=== PATIENT | female | born 1955 | race Caucasian/White ===

== ENCOUNTER 2024-11-05 20:14 | Inpatient (IN) | payer MEDICARE, OTHER, SELFPAY ==
[2024-11-05 14:36] VITALS: BP 149/81
[2024-11-05 15:00] LABS: % Basophils 0.4 % (0-2); % Eosinophils 2.2 % (0-6); % Immature Granulocytes 0.4 % (0-0.5); % Lymphocytes 14.9 % (20.5-51.1); % Monocytes 10.2 % (1.7-9.3); % Neutrophils 71.9 % (42.2-75.2); Absolute Eosinophils 0.2 10^3/uL (0-0.7); Absolute Lymphocytes 1.3 10^3/uL (1.2-3.4); Absolute Monocytes 0.9 10^3/uL (0.1-0.6); Hemoglobin 13.2 g/dL (12.0-16.0); Mean Corp Hgb Conc. 33.8 g/dL (33.0-37.0); Mean Corpuscular Hgb 30.4 pg (27.0-31.0); Mean Corpuscular Volume 89.9 fL (81.0-99.0); Mean Platelet Volume 10.3 fL (7.4-10.4); Nucleated Red Blood Cells % 0 %; Platelet Count 217 10^3/uL (130-400); Red Blood Cell Count 4.34 10^6/uL (4.20-5.40); Red Cell Dist. Width 11.9 % (11.5-14.5); White Blood Cell Count 8.4 10^3/uL (4.8-10.8)
[2024-11-05 15:05] LABS: Urine Albumin Negative (Neg - Trace); Urine Bilirubin Negative (Negative); Urine Character Clear (Clear); Urine Color Yellow; Urine Glucose Negative (Negative); Urine Ketone Negative (Negative); Urine Leukocyte Negative (Negative); Urine Nitrite Negative (Negative); Urine Occult Blood Negative (Negative); Urine Urobilinogen Negative (Neg - 1+)
[2024-11-05 15:22] LABS: ALT (SGPT) 15 U/L (0-35); AST (SGOT) 18 U/L (14-36); Albumin 4.3 g/dl (3.5-5.0); Alkaline Phosphatase 85 U/L (38-126); Blood Urea Nitrogen 13 mg/dl (7-17); Calcium 9.2 mg/dl (8.4-10.2); Carbon Dioxide 26 mmol/L (22-30); Chloride 101 mmol/L (98-107); Glucose 94 mg/dl (70-99); Potassium 4.3 mmol/L (3.5-5.1); Sodium 136 mmol/L (135-145); Total Protein 6.7 g/dl (6.3-8.2); eGFR > 60.00
[2024-11-05 17:43] VITALS: BP 135/95
--- NOTE | 2024-11-05 18:29 | ED.GENMED ---
History of Present Illness
General
Chief Complaint: Flank Pain
Source: patient
Exam Limitations: none
Time Seen by Provider: 11/05/24 16:19
Nursing documentation reviewed up to this point in time: agreed with
History of Present Illness
History of Present Illness:
69-year-old female with past medical history as documented presents to the emergency room for evaluation of abdominal pain. Patient reports symptoms started about a week ago and have been constant although intermittently more intense since then.
She reports she has had 3 episodes since onset of pain where she is 'doubled over' due to severe symptoms. She says initially she thought it was a kidney stone so she has been drinking plenty of fluids but symptoms do not seem to be getting any
better and today had another very intense episode of pain which prompted her to finally come for assessment. She has had some chills, nausea during these bouts of intense pain. Last night she says that she had a low-grade fever with a temp of 100
�F. She denies any dysuria, hematuria. She denies any diarrhea. Denies any vomiting. Denies other complaints.
Review of Systems
Review of Systems
All Other Systems: ROS reviewed and negative except as documented in HPI and ROS
Constitutional: Denies fever or chills
Respiratory: Denies trouble breathing
Cardiac: Denies chest pain
ABD/GI: Reports abdominal pain; Denies nausea, vomiting or diarrhea
: Reports flank pain; Denies dysuria or frequency
Musculoskeletal: Denies neck pain or back pain
Neurological: Denies dizzy or headache
Phy Exam
Physical Exam
Physical Exam:
General: Awake, alert, oriented x3; no acute distress
Head: Normocephalic, atraumatic
Eyes: Conjunctiva normal, sclera anicteric
Throat: Airway intact, handling secretions
Neck: Trachea midline, supple without meningismus
Lungs: Clear to auscultation bilaterally, no wheezing, rales, rhonchi
Heart: Regular rate and rhythm, no murmurs, gallops, or rubs
Abd: Soft, non distended, tender to palpation left lower quadrant with no peritoneal signs or masses appreciated
Back: No CVA tenderness
Neuro: No gross deficit
Extremities: No edema in extremities, warm and well-perfused
Scores
Heart Failure Risk
Heart Failure Risk Score: Not Applicable
Heart Score for Chest Pain Patients
STEMI patient?: Not applicable
Withdrawal Assessment of Alcohol
Withdrawal Assessment Completed?: Not applicable
Course
Orders/Labs/Results
Orders:
Orders
11/05/24 14:49
Complete Blood Count/With Diff Urgent
Comprehensive Metabolic Panel Urgent
Urinalysis Reflex To Culture Urgent
Date Specimen was Collected: 11/05/24
Time Specimen was Collected: 14:41
11/05/24 17:17
CT Abd/pelvis W Iv Cont Urgent
Comment:
Reason For Exam: left flank/abd pain
11/05/24 19:08
CefTRIAXone [Rocephin] 1,000 mg IV NOW STA
MetroNIDAZOLE 500 MG/100 ML [Flagyl 500 mg] 100 ml IV NOW
11/05/24 19:15
0.9% Sodium Chloride 1000 ml [Nss] 1,000 ml IV 125 mls/hr
Abnormal Lab Results
11/05/24
14:49
Absolute Monos (auto) 0.9 H 10^3/uL
(0.1-0.6)
Lymphocytes % 14.9 L %
(20.5-51.1)
Monocytes % 10.2 H %
(1.7-9.3)
11/05/24 14:49
11/05/24 14:49
Vital Signs
Initial and Last Documented VS:
Initial Vital Signs
Temp Pulse Resp BP Pulse Ox
36.9 C 96 16 149/81 99
11/05/24 14:36 11/05/24 14:36 11/05/24 14:36 11/05/24 14:36 11/05/24 14:36
Last Documented Vital Signs
Temp Pulse Resp BP Pulse Ox
36.9 C 96 16 135/95 99
11/05/24 14:36 11/05/24 14:36 11/05/24 14:36 11/05/24 17:43 11/05/24 17:45
MDM/Problems Addressed
Differential Diagnosis Includes:
Diverticulitis, nephrolithiasis, UTI/pyelonephritis, colitis
MDM/Problems Addressed:
69-year-old female presents to the emergency room for evaluation of abdominal pain x 1 week left lower quadrant/flank. Occasional bouts of more intense pain. Low-grade fever last night. Vitals and exam as above. Place an IV check labs including
a CBC and a CMP, check urinalysis. Check CT abdomen pelvis. Treat pain and provide fluids. Reassess after the above.
Labs reviewed: CBC unremarkable, CMP no clinically significant abnormalities. Urinalysis negative for infection, no blood. CT abdomen pelvis is pending.
CT abdomen pelvis shows acute diverticulitis. Also shows small amount of intraluminal or extraluminal air along the lateral wall of the sigmoid colon distal to the inflamed diverticulum. Clinical suspicion is low for microperforation but given
this finding will admit for serial exams, trending of labs and inpatient treatment. Case discussed with hospitalist.
*Radiology
Radiology exam reviewed: radiology read reviewed
*Pulse Oximetry
Patient hypoxic: no
*Critical Care Note
Total Time (30-74mins, 75-104mins- exclusive of procedures): Not Applicable
Data Reviewed
Source: patient, records and spouse
Patient Management
Discussion with other providers: Hospitalist (Discussed with hospitalist)
Escalation/DeEscalation of care consider admission/obs:
Admission indicated
ED Attending Note
-
Portions of this chart may have been created with voice recognition software.� Occasional wrong word or��sound alike� substitutions may have occurred due to the inherent limitations of voice recognition software.
Discharge Plan
Departure
Patient Disposition: Admit
Date of Disposition: 11/05/24
Time of Disposition: 19:10
Admit to doctor: Spencer
Presentation/result/management discussed w/ accepting MD/DO: Hospitalist
Discharge Problem:
Acute diverticulitis
Referrals:
Yael Shaw DO [Family Provider] -
Interventions
Interventions:
*Risk Screen - Suicide Last Done: 11/05/24 14:43
*General Assessment Last Done: 11/05/24 17:00
*Neglect/Abuse Screening Last Done: 11/05/24 14:43
*ED COVID-19 Vaccine History Last Done: 11/05/24 17:00
CW-Afxmhg-Bvasmuraks Assessment Last Done: 11/05/24 17:00
ED-Female Genitourinary Assessment Last Done: 11/05/24 17:00
Discharge Date and Time
Print Language: KINYARWANDA
--- NOTE | 2024-11-05 19:15 | HPS.HSE ---
Family Physician
-
Family Physician: Yael Shaw
Chief Complaint
-
left flank and lower abdominal pain
History of Present Illness
Patient is a 69-year-old female with past medical history significant for hypothyroidism, hypertension and prediabetes who presented to [facility] ED for evaluation of left lower abdominal and left flank pain. Patient reports left flank and left
lower quadrant discomfort intermittently over past week gradually getting more intense. Last evening she reports that she had increased discomfort and noticed a low grade temp of 100F with associated nausea. Patient denies any chill, vomiting,
constipation or diarrhea.
Medical History
Past Medical History
Past Medical History: Reports Other
Additional Past Medical History:
hypothyroidism
benign hypertension
prediabetes
Past Surgical History: Reports Other
Additional Past Surgical History:
appendectomy
cholecystectomy
bilateral shoulder repair
left total knee
Social History
Tobacco: Non-smoker
Alcohol: Occasional
Drug: None
Personal:
Living: With Family
Employment: Retired
Family History
Family History: Not pertinent
Allergies / Home Medications
Allergies reflects when Allergies were last updated in [facility].
Home Medications with original date entered in [facility]
Allergy/Medication List:
Allergies
Allergy/AdvReac Type Severity Reaction Status Date / Time
acetaminophen Allergy Unverified 02/08/08 19:17
cefuroxime Allergy Unverified 02/08/08 19:17
Cephalosporins Allergy Unverified 02/08/08 19:17
ciprofloxacin Allergy Unverified 02/08/08 19:17
morphine Allergy Unverified 02/08/08 19:17
oxycodone Allergy Unverified 02/08/08 19:17
penicillin G Allergy Unverified 02/08/08 19:17
Penicillins Allergy Unverified 04/24/08 19:17
Quinolones Allergy Unverified 02/08/08 19:17
Sulfa (Sulfonamide Allergy Unverified 02/08/08 19:17
Antibiotics)
NOT.VZYNDPSSX26 - Not Allergy Uncoded 02/08/08 19:17
Converted 7. See Text.
NOT.GBVLLPDHG15 - Not Allergy Uncoded 02/08/08 19:17
Converted 38. See Text.
Home Medications
fluticasone propionate 50 mcg/actuation nasal spray,suspension 1 spray intranasal DAILYPRN PRN allergies 11/05/24
levothyroxine 100 mcg capsule (Tirosint) 100 mcg PO Q48H 11/05/24
levothyroxine 88 mcg capsule (Tirosint) 88 mcg PO Q48H 11/05/24
losartan 25 mg tablet (Cozaar) 25 mg PO DAILY 11/05/24
metformin 500 mg tablet 500 mg PO BID 11/05/24
Review of Systems
-
History Source: Patient
Constitutional: Reports Fever and Sleep Disturbance
EENT: Reports No Symptoms
Respiratory: Reports No Symptoms
Cardiac: Reports No Symptoms
Abdomen/GI: Reports Abdominal Pain and Nausea
: Reports No Symptoms
Musculoskeletal: Reports No Symptoms
Skin: Reports No Symptoms
Neurological: Reports No Symptoms
Endocrine: Reports No Symptoms
Hematologic/Lymphatic: Reports No Symptoms
Psych: Reports No Symptoms
Physical Exam
Vital Signs
Vital Signs
Temp Pulse Resp BP Pulse Ox
98.4 F 96 16 135/95 99
11/05/24 14:36 11/05/24 14:36 11/05/24 14:36 11/05/24 17:43 11/05/24 17:45
Physical Exam
General: Well Developed, Well Nourished, No Apparent Distress, Conversant and Pain
HEENT: NormoCephalic, Moist mucous membranes, Atraumatic, Grill Conjunctivae, Nose Appears Normal and Ears Appear Normal
Respiratory: Clear and Non Labored Respirations
Cardiac: S1/S2 and Regular Rhythm; No Murmur, Rub or Gallop
Breast: Deferred by me
GI: Soft, Normal Bowel Sounds and Tender; No Organomegaly
Rectal: Deferred by Provider
Genito-urinary: Deferred by me
Musculoskeletal: No Clubbing, No Cyanosis and No Edema
Skin: Warm and IV/Catheter Site; No Rash
Neuro: Awake, Alert, AO x 3 and Nonfocal/grossly intact
Psych: Calm and Intact Judgment/Insight
Laboratory Results
-
11/05/24 14:49
11/05/24 14:49
Laboratory Results
Total Bilirubin 1.0 mg/dl (0.2-1.3) 11/05/24 14:49
AST 18 U/L (14-36) 11/05/24 14:49
ALT 15 U/L (0-35) 11/05/24 14:49
Alkaline Phosphatase 85 U/L (38-126) 11/05/24 14:49
Data Reviewed
-
CT Scan: Report Reviewed by me (Abd/Pelvis: 1. ACUTE DIVERTICULITIS in the SIGMOID COLON with mild surrounding inflammation. 2. Small amount of intramural or extraluminal air along the lateral wall of the sigmoid colon distal to the inflamed
diverticulum. 3. Moderate diverticulosis throughout the sigmoid colon. 4. Previous)
Lab Data: Labs Reviewed by me
Impression/Plan
-
IMPRESSION/PLAN:
#Abdominal pain
#diverticulitis
Abd/Pelvis CT: 1. ACUTE DIVERTICULITIS in the SIGMOID COLON with mild surrounding inflammation.
2. Small amount of intramural or extraluminal air along the lateral wall of the sigmoid colon distal to the inflamed diverticulum.
3. Moderate diverticulosis throughout the sigmoid colon.
4. Previous appendectomy, cholecystectomy, and SALEEM-BSO
- Admit to med/surg
- consult colorectal
- IVF LR
- IV antibiotics
- pain regimen
- antiemetics
#hypothyroidism
- continue Tirosint (patient will supply needs to be brand specific)
#benign hypertension
- hold losartan
#prediabetes
- hold metformin
Code Status: Full Code
DVT Prophylaxis: SCDs
--- NOTE | 2024-11-05 19:25 | W.PN.UPDATE ---
Update Note
Progress Note Update
Patient seen and condition with MAE. I agree find no history of physical. I concur with assessment and plan as stated unless otherwise stated.
This is a 69-year-old with past medical history of hypothyroidism, exercise-induced hypertension and prediabetes stool/prior appendectomy cholecystectomy and prior presenting to the emergency department with 1 week of intermittent
bilateral lower quadrant abdominal pain. Patient reports the pain started about 1 week ago with bilateral crampy abdominal pain without urinary symptoms. More recently she had pain in the left lower quadrant radiating to the groin which she felt
was like a kidney stone but she never had kidney stones. She developed nausea with the intense pain but no vomiting. She has not been having any diarrhea. She reported today fever was going up to 100 �F at home. No known sick contacts.
In the emergency department she was afebrile, blood pressure was stable at 135/95 with a pulse of 96 satting 99% on room air. CBC was completely unremarkable. Electrolytes BUN and creatinine as well as LFTs were normal.
CT of the abdomen pelvis showed acute diverticulitis in the sigmoid colon with mild surrounding inflammation, small amount of intramural lower extremity luminal here along the lateral wall of the sigmoid colon distal to the inflamed diverticulum.
Assessment and plan.
Acute sigmoid diverticulitis with possible microperforation -patient well-appearing and hemodynamically stable.
- admit to med/surg
- confirmed allergies with patient (no known allergies to cephalosporins), will continue ceftriaxone/flagyl. If allergic to ceftriaxone will consider Aztreonam/flagyl vs meropenem
- NPO, pain control with tylenol/toradol/dilaudid prn and antiemetics
- IV fluids
- serial examinations
- colorectal surgery consult.
- hold losartan/metformin, continue levothyroxine
DVT PPX - lovenox SQ
Code status - full code
[2024-11-05 19:39] VITALS: BMI 27.0
[2024-11-05] MEDS: FLAGYL 500 MG 100 IV (19:48)
[2024-11-05] MEDS: ROCEPHIN 1000 MG IV (19:49)
[2024-11-05] MEDS: NSS 1000 IV (19:49)
[2024-11-05 20:00] VITALS: BP 151/79
--- NOTE | 2024-11-05 21:30 | PTCARENOTE ---
Pt arrived to [facility] from ED. Walks independently, VSS. Pt oriented to room, call okeefe within reach. Plan of care reviewed with pt. NS at 125 mL/hr d/c'd by SWATI Doss, will continue with LR at 100 mL/hr.
[2024-11-05 21:33] VITALS: BMI 23.1
[2024-11-05 21:34] VITALS: BP 147/95
[2024-11-05] MEDS: TYLENOL 650 MG PO (21:39)
[2024-11-05] MEDS: LR 1000 IV (22:29)
[2024-11-05 23:00] VITALS: BP 140/74
[2024-11-06] MEDS: FLAGYL 500 MG 100 IV ×3 (04:21→20:06)
[2024-11-06] MEDS: TYLENOL 650 MG PO ×2 (04:34→08:46)
[2024-11-06 07:52] VITALS: BP 143/82
[2024-11-06 07:57] LABS: Hematocrit 35.1 % (37.0-47.0); Hemoglobin 11.9 g/dL (12.0-16.0); Mean Corp Hgb Conc. 33.9 g/dL (33.0-37.0); Mean Corpuscular Hgb 30.6 pg (27.0-31.0); Mean Corpuscular Volume 90.2 fL (81.0-99.0); Mean Platelet Volume 10.6 fL (7.4-10.4); Platelet Count 186 10^3/uL (130-400); Red Blood Cell Count 3.89 10^6/uL (4.20-5.40); Red Cell Dist. Width 11.9 % (11.5-14.5); White Blood Cell Count 5.1 10^3/uL (4.8-10.8)
[2024-11-06 08:20] LABS: Blood Urea Nitrogen 10 mg/dl (7-17); Calcium 8.8 mg/dl (8.4-10.2); Carbon Dioxide 27 mmol/L (22-30); Chloride 102 mmol/L (98-107); Estimated Creatinine Clearance 59 ml/min; Glucose 85 mg/dl (70-99); Potassium 4.4 mmol/L (3.5-5.1); Sodium 137 mmol/L (135-145); eGFR > 60.00
[2024-11-06] MEDS: LR 1000 IV ×2 (08:39→20:06)
--- NOTE | 2024-11-06 08:57 | CON.CRS ---
Consultation
-
Reason for Consultation: diverticulitis
Medical History
-
Chief Complaint: abdominal pain
History of Present Illness:
69 yo F with off and on LLQ pain for a week leading to evaluation in ER. Also admits to low grade fever. No other symptoms. Having normal BMs. WBC in ER normal at 8.4. CT reviewed and shows evidence for sigmoid inflammation and possible
localized extraluminal air/microperf. No abscess. No prior history of diverticulitis. Last colonoscopy at [facility] (?Dr. Montgomery) 4-5 years ago 'negative' per patient with plans for repeat in 10 years from then.
Past Medical History
Past Medical History: HTN, NIDDM and Other (hypothyroid)
Past Surgical History: Appendectomy, Cholecystectomy and Orthopedic (bilateral shoulders and LTKR)
Social History
Tobacco: Non-Smoker
Alcohol: Occasional
Living: With Family
Family History
Family History: Reviewed & Not Pertinent
Allergies / Home Medications
Allergy/AdvReac Type Severity Reaction Status Date / Time
azithromycin Allergy Intermediate Hives Verified 11/05/24 19:38
[From Zithromax Z-Laron]
cefuroxime Allergy Intermediate Hives Verified 11/05/24 22:52
Cephalosporins Allergy Intermediate Hives Verified 11/05/24 22:52
ciprofloxacin Allergy Intermediate Hives Verified 11/05/24 22:52
levofloxacin [From Levaquin] Allergy Intermediate Hives Verified 11/05/24 19:38
morphine Allergy Intermediate Vomiting Verified 11/05/24 19:38
oxycodone Allergy Intermediate Unknown Verified 11/05/24 22:52
penicillin G Allergy Intermediate Hives Verified 11/05/24 21:42
Penicillins Allergy Intermediate Hives Verified 11/05/24 19:38
Quinolones Allergy Intermediate Hives Verified 11/05/24 22:52
Sulfa (Sulfonamide Allergy Intermediate Hives Verified 11/05/24 22:52
Antibiotics)
egg Allergy Mild Nausea Verified 11/05/24 21:59
�Medication �Instructions �Recorded �Confirmed �Type
fluticasone propionate 50 1 spray intranasal DAILYPRN PRN 11/05/24 11/05/24 History
mcg/actuation nasal allergies
spray,suspension
levothyroxine 100 mcg capsule 100 mcg PO Q48H Thyroid 11/05/24 11/05/24 History
(Tirosint)
levothyroxine 88 mcg capsule 88 mcg PO Q48H Thyroid 11/05/24 11/05/24 History
(Tirosint)
losartan 25 mg tablet (Cozaar) 25 mg PO DAILY Blood Pressure 11/05/24 11/05/24 History
metformin 500 mg tablet 500 mg PO BID Diabetes 11/05/24 11/05/24 History
Review of Systems
-
A 10 point review of systems was completed, and was negative except as per HPI.
Physical Exam
Vital Signs
Temp 98.1 F 11/06/24 07:52
Pulse 74 11/06/24 07:52
Resp Rate 18 11/06/24 07:52
Blood pressure 143/82 11/06/24 07:52
SaO2 99 11/06/24 07:52
11/05/24 11/06/24 11/07/24
06:59 06:59 06:59
Actual Weight 63.304 kg
Body Mass Index (BMI) 23.1
Lab Results / Allergies
11/06/24 07:09
11/06/24 07:09
WBC 5.1 10^3/uL (4.8-10.8) 11/06/24 07:09
Hgb 11.9 g/dL (12.0-16.0) L 11/06/24 07:09
Hct 35.1 % (37.0-47.0) L 11/06/24 07:09
Plt Count 186 10^3/uL (130-400) 11/06/24 07:09
Abs Immat Gran (auto) 0.0 10^3/uL (0-0.05) 11/05/24 14:49
Neutrophils % 71.9 % (42.2-75.2) 11/05/24 14:49
Allergy/AdvReac Type Severity Reaction Status Date / Time
azithromycin Allergy Intermediate Hives Verified 11/05/24 19:38
[From Zithromax Z-Laron]
cefuroxime Allergy Intermediate Hives Verified 11/05/24 22:52
Cephalosporins Allergy Intermediate Hives Verified 11/05/24 22:52
ciprofloxacin Allergy Intermediate Hives Verified 11/05/24 22:52
levofloxacin [From Levaquin] Allergy Intermediate Hives Verified 11/05/24 19:38
morphine Allergy Intermediate Vomiting Verified 11/05/24 19:38
oxycodone Allergy Intermediate Unknown Verified 11/05/24 22:52
penicillin G Allergy Intermediate Hives Verified 11/05/24 21:42
Penicillins Allergy Intermediate Hives Verified 11/05/24 19:38
Quinolones Allergy Intermediate Hives Verified 11/05/24 22:52
Sulfa (Sulfonamide Allergy Intermediate Hives Verified 11/05/24 22:52
Antibiotics)
egg Allergy Mild Nausea Verified 11/05/24 21:59
Physical Exam
General: Well Developed
Respiratory: Clear
Cardiac: Regular Rhythm
GI: Soft, Non Distended and Tender (moderate LLQ)
Neuro: AO x 3
Psych: Calm
Data Reviewed
-
CT Scan: Image Personally Visualized and interpreted and Discussed with Patient
Assessment / Plan
-
69 yo F with sigmoid diverticulitis with microperforation/localized perforation. Clinically stable and not in extremis. First attack. No need for urgent surgical intervention. Agree with IVFs, IV antibiotics, diet restriction. Will start clears
and monitor.
--- NOTE | 2024-11-06 10:34 | CM ---
Pt seen bedside. Initial assessment completed. Admitted for left flank and lower abdominal pain.
Pt reports that she lives w/ spouse in a [facility]- 3 steps to enter the home
Pt is independent w/ ambulating, denies DME. Denies any current OP or home services
Denies SNF hx. Prev serviced w/ [facility] for about a week after knee replacement
Address, point of contact and insurance verified
PCP: Dr. Shaw
Pharmacy: [facility]
Plan: Anticipate home; no needs
CM will cont to follow hospital course
--- NOTE | 2024-11-06 12:17 | W.PN.HOSP.TC ---
Today's Communication/Plan
-
Continue with antibiotics
Clear liquid diet per colorectal surgery
Assessment / Plan
Assessment / Plan
Acute sigmoid diverticulitis with possible microperforation
-No evidence of abscess.
-No free air.
-Improving symptoms. Continue with ceftriaxone and Flagyl.
-Appreciate colorectal surgery consult-start on clear liquid diet.
Hypertension-resume losartan
Prediabetes-hold metformin
- hold losartan/metformin, continue levothyroxine
DVT PPX - lovenox SQ
Code status - full code
Anticipated Discharge: Today
Subjective/Interval History
-
Date of Service: November 06, 2024
Improved the left lower quadrant abdominal pain. No nausea vomiting. No fever or chills.
She was last colonoscopy was 5 years ago. No prior history of diverticulitis.
Objective Data
-
Labs:
Laboratory Results
11/06/24
07:09
WBC 5.1
Hgb 11.9 L
Hct 35.1 L
Plt Count 186
Sodium 137
Potassium 4.4
Chloride 102
Carbon Dioxide 27
BUN 10
Creatinine 0.8
Glucose 85
Calcium 8.8
Vital Signs:
Vital Signs
Temp Pulse Resp BP Pulse Ox
98.1 F 74 18 143/82 99
11/06/24 07:52 11/06/24 07:52 11/06/24 07:52 11/06/24 07:52 11/06/24 08:00
I&O
11/05/24 11/06/24 11/07/24
06:59 06:59 06:59
Intake Total 920 / 920
Balance 920 / 920
Review of Systems
-
Respiratory: Denies Trouble Breathing
Cardiac: Denies Chest Pain
Neuro: Denies Dizzy
Physical Exam
-
General: No Apparent Distress
Respiratory: Non Labored Respirations; Negative Accessory Resp Muscle Use
Cardiac: Regular Rhythm and S1/S2; Negative Tachycardic
GI: Soft, Nontender, Normal Bowel Sounds and Tender (Mild discomfort in the left lower quadrant but no rebound guarding rigidity)
Neuro: AO x 3
Data Reviewed
-
Labs: Labs Reviewed by me
[2024-11-06] MEDS: COZAAR 25 MG PO (13:07)
[2024-11-06] MEDS: ZOFRAN 4 MG IV ×2 (14:54→21:40)
[2024-11-06 15:32] VITALS: BP 139/74
[2024-11-06] MEDS: DILAUDID 0.25 MG IV ×2 (15:43→20:07)
--- NOTE | 2024-11-06 17:05 | PTCARENOTE ---
Pt reports abd pain, diarrhea, n/v after eating. PRN zofran and dilaudid administered with relief. MD Pascal notified, pt to remain on CLQ diet with symptomatic tx. Plan of care ongoing.
[2024-11-06] MEDS: ROCEPHIN 1000 MG IV (20:07)
[2024-11-06] MEDS: STERILE WATER FOR INJECTION 10 ML IV (20:07)
[2024-11-06] MEDS: FLUSH (NSS) 10 FLUSH IV ×2 (20:33→21:43)
[2024-11-06 23:27] VITALS: BP 119/81
--- NOTE | 2024-11-07 02:11 | DOWNTIME ---
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 Downtime documentation of patient's care, including medication administrations, has been reconciled in the electronic record per guidelines. Refer to the
patient's paper chart under the miscellaneous tab to see printed paper medication records and downtime forms.
[2024-11-07] MEDS: FLAGYL 500 MG 100 IV ×3 (03:31→20:10)
[2024-11-07] MEDS: DILAUDID 0.25 MG IV (03:31)
[2024-11-07] MEDS: NON-FORMULARY ITEM 100 MCG PO (04:42)
[2024-11-07 07:55] VITALS: BP 147/81
[2024-11-07 07:55] LABS: Hematocrit 33.3 % (37.0-47.0); Hemoglobin 11.5 g/dL (12.0-16.0); Mean Corp Hgb Conc. 34.5 g/dL (33.0-37.0); Mean Corpuscular Hgb 30.9 pg (27.0-31.0); Mean Corpuscular Volume 89.5 fL (81.0-99.0); Mean Platelet Volume 10.4 fL (7.4-10.4); Platelet Count 182 10^3/uL (130-400); Red Blood Cell Count 3.72 10^6/uL (4.20-5.40); Red Cell Dist. Width 11.9 % (11.5-14.5); White Blood Cell Count 6.1 10^3/uL (4.8-10.8)
[2024-11-07] MEDS: COZAAR 25 MG PO (08:14)
[2024-11-07] MEDS: LR 1000 IV (09:20)
--- NOTE | 2024-11-07 10:18 | W.PN.HOSP.TC ---
Today's Communication/Plan
-
Continue with clear liquid diet
Continue with antibiotics
Follow GI symptoms
Assessment / Plan
Assessment / Plan
Acute sigmoid diverticulitis with possible microperforation
-No evidence of abscess.
-No free air.
-Intermittent nausea and worsened abdominal pain yesterday which all improved. Unclear if this is continued symptom of diverticulitis or relation to Flagyl. She is afebrile and white count is normal. For now continue with ceftriaxone and Flagyl
and if recurrent symptoms will discontinue Flagyl and consider alternatives. She has got significant antibiotic allergies and may have been involved infectious disease team.
-Appreciate colorectal surgery consult-continue clear liquid diet.
Hypertension-resume losartan
Prediabetes-hold metformin
- hold losartan/metformin, continue levothyroxine
DVT PPX - lovenox SQ
Code status - full code
Anticipated Discharge: > 48 hours
Subjective/Interval History
-
Date of Service: November 07, 2024
Yesterday she noticed that after an hour of Flagyl infusion she had nausea.
Last evening again she felt the quite nauseous and had a chill associated with that. She also felt more abdominal pain last evening needing IV Dilaudid.
This morning improved abdominal pain and no nausea.
No fevers
No skin rash or itchiness
Objective Data
-
Labs:
Laboratory Results
11/07/24
07:23
WBC 6.1
Hgb 11.5 L
Hct 33.3 L
Plt Count 182
Vital Signs:
Vital Signs
Temp Pulse Resp BP Pulse Ox
98.4 F 86 18 147/81 98
11/07/24 07:55 11/07/24 07:55 11/07/24 07:55 11/07/24 08:14 11/07/24 08:00
I&O
11/06/24 11/07/24 11/08/24
06:59 06:59 06:59
Intake Total 2319
Balance 2319
Review of Systems
-
Respiratory: Denies Trouble Breathing
Cardiac: Denies Chest Pain
Neuro: Denies Dizzy
Physical Exam
-
General: No Apparent Distress
Respiratory: Non Labored Respirations; Negative Accessory Resp Muscle Use
Cardiac: Regular Rhythm and S1/S2; Negative Tachycardic
GI: Soft, Nondistended, Normal Bowel Sounds and Tender (LLQ mild but no rebound or guarding)
Neuro: AO x 3
Data Reviewed
-
Labs: Labs Reviewed by me
--- NOTE | 2024-11-07 11:30 | W.PN.CRS1 ---
Today's Communication / Plan
-
Advance to full liquids
Assessment/Plan
-
69 yo F with sigmoid diverticulitis with microperforation/localized perforation
-Vitals normal. WBC 6.1.
-Continue IV antibiotics
-Advance to full liquid diet as tolerated
-No plans for surgery at this time. If she were to worsen, she would require a colectomy with colostomy creation.
Subjective Data
Subjective Data
Date of Service: November 07, 2024
Patient states she feels much better. She states yesterday she vomited after getting one of the IV antibiotics but she feels better today. She has no nausea.
Objective Data
-
Vital Signs
Temp Pulse Resp BP Pulse Ox
98.4 F 86 18 147/81 98
11/07/24 07:55 11/07/24 07:55 11/07/24 07:55 11/07/24 08:14 11/07/24 08:00
Intake & Output
11/06/24 11/07/24 11/08/24
06:59 06:59 06:59
Intake Total 920 / 920 2320 / 2320
Balance 920 / 920 2320 / 2320
Intake:
Oral fluids 120 / 120 120 / 120
IV fluids (Total) 700 / 700 1900 / 1900
IV piggybacks 100 / 100 300 / 300
Other:
Number of approximated MODERATE 2
amounts of urine
Number of approximated LARGE 2
amounts of urine
Lab Results
11/07/24 07:23
11/06/24 07:09
--- NOTE | 2024-11-07 12:02 | CM ---
CM reviewed chart, patient remains on IV antibiotics, continue with clear liquid diet. Patient denies needs from CM at this time, reports her will provide transportation home when stable. CM will continue to follow for all discharge planning
needs.
Plan; home no needs when stable likely
[2024-11-07 15:45] VITALS: BP 144/79
[2024-11-07] MEDS: FLUSH (NSS) 1 FLUSH IV ×2 (20:09→20:11)
[2024-11-07] MEDS: ROCEPHIN 1000 MG IV (20:10)
[2024-11-07] MEDS: STERILE WATER FOR INJECTION 10 ML IV (20:10)
[2024-11-07 23:45] VITALS: BP 146/76
[2024-11-08] MEDS: FLAGYL 500 MG 100 IV ×2 (04:00→11:56)
[2024-11-08] MEDS: NON-FORMULARY ITEM 88 MCG PO (05:03)
[2024-11-08 08:02] LABS: Hemoglobin 11.2 g/dL (12.0-16.0); Mean Corp Hgb Conc. 33.9 g/dL (33.0-37.0); Mean Corpuscular Hgb 30.5 pg (27.0-31.0); Mean Corpuscular Volume 89.9 fL (81.0-99.0); Mean Platelet Volume 10.7 fL (7.4-10.4); Platelet Count 187 10^3/uL (130-400); Red Blood Cell Count 3.67 10^6/uL (4.20-5.40); Red Cell Dist. Width 11.9 % (11.5-14.5)
[2024-11-08] MEDS: COZAAR 25 MG PO (08:10)
[2024-11-08 08:30] LABS: Blood Urea Nitrogen 6 mg/dl (7-17); Calcium 8.5 mg/dl (8.4-10.2); Carbon Dioxide 26 mmol/L (22-30); Chloride 104 mmol/L (98-107); Estimated Creatinine Clearance 59 ml/min; Glucose 89 mg/dl (70-99); Potassium 3.8 mmol/L (3.5-5.1); Sodium 137 mmol/L (135-145); eGFR > 60.00
[2024-11-08 08:33] VITALS: BP 129/73
--- NOTE | 2024-11-08 10:08 | W.PN.HOSP.TC ---
Addendum entered and electronically signed by Eber Pascal MD 11/08/24 14:51:
Patient is tolerated low residue diet without any trouble. She had 2 meals so far without issue. She has no nausea vomiting or diarrhea.
Patient has multiple antibiotic allergy including cephalosporins and cefuroxime.
So far here she is tolerating third-generation cephalosporin ceftriaxone without reaction including hives. Discussed with the patient and the oral choice would be cefdinir which is a third-generation cephalosporins but advised her to keep a close
eye on her if she develops hives or rash to stop but then take Benadryl immediately and come back to the hospital if she is not feeling well. She understands the symptoms and signs to watch for.
Advised to 10 days in total of antibiotics.
Original Note:
Today's Communication/Plan
-
Advance to low residue diet and if she tolerates will consider discharge today.
Assessment / Plan
Assessment / Plan
Acute sigmoid diverticulitis with possible microperforation
-No evidence of abscess.
-No free air.
-Patient now with resolved abdominal pain and abdominal tenderness. She is tolerating full liquids without nausea.
- Will advance diet to low residue today and follow tolerance of it.
-Appreciate colorectal surgery consult.
-Patient advised to follow with colorectal surgery and she was told that she probably would need a repeat colonoscopy in 6-8 weeks
Hypertension-resume losartan
Prediabetes-hold metformin.
Hypothyroidism -continue levothyroxine
DVT PPX - lovenox SQ
Code status - full code
Anticipated Discharge: Today
Subjective/Interval History
-
Date of Service: November 08, 2024
No further nausea. Tolerating full liquids. Resolved abdominal pain.
Objective Data
-
Labs:
Laboratory Results
11/08/24
06:41
WBC 5.0
Hgb 11.2 L
Hct 33.0 L
Plt Count 187
Sodium 137
Potassium 3.8
Chloride 104
Carbon Dioxide 26
BUN 6 L
Creatinine 0.8
Glucose 89
Calcium 8.5
Vital Signs:
Vital Signs
Temp Pulse Resp BP Pulse Ox
97.8 F 72 16 129/73 97
11/08/24 08:33 11/08/24 08:33 11/08/24 08:33 11/08/24 08:33 11/08/24 08:33
I&O
11/07/24 11/08/24 11/09/24
06:59 06:59 06:59
Intake Total 2320 / 2320 1500 / 1500
Balance 2320 / 2320 1500 / 1500
Review of Systems
-
Constitutional: Denies Fever
Respiratory: Denies Trouble Breathing
Cardiac: Denies Chest Pain
Neuro: Denies Dizzy
Physical Exam
-
General: Comfortable
Respiratory: Non Labored Respirations; Negative Accessory Resp Muscle Use
Cardiac: Negative Tachycardic
GI: Soft, Nontender, Nondistended and Normal Bowel Sounds
Neuro: AO x 3
Data Reviewed
-
Labs: Labs Reviewed by me
--- NOTE | 2024-11-08 10:56 | CM ---
Addendum entered by Mamta Wagoner 11/08/24 15:26:
Patient provided with IMM, verbally agreeable to discharge, will provide transport home.
Original Note:
CM reviewed chart, patient seen bedside. Patient reports no needs at this time, family will transport home. CM will continue to follow for all discharge planning needs.
Plan; home no needs when stable.
--- NOTE | 2024-11-08 11:20 | W.PN.CRS1 ---
Today's Communication / Plan
-
Low residue diet
Assessment/Plan
-
69 yo F with sigmoid diverticulitis with microperforation/localized perforation
-Vitals normal. WBC 5.0
-Continue IV antibiotics, finish course as an outpatient
-Advance to low residue diet
-No plans for surgery at this time
-Okay for discharge from our perspective if she tolerates a low residue diet. She will need to follow-up in the office in a few weeks to discuss elective surgery.
Subjective Data
Subjective Data
Date of Service: November 08, 2024
Patient states she had a bowel movement this morning. She overall feels well. She tolerated a full liquid diet. She is very hungry. She denies nausea or vomiting.
Objective Data
-
Vital Signs
Temp Pulse Resp BP Pulse Ox
97.8 F 72 16 129/73 97
11/08/24 08:33 11/08/24 08:33 11/08/24 08:33 11/08/24 08:33 11/08/24 08:33
Intake & Output
11/07/24 11/08/24 11/09/24
06:59 06:59 06:59
Intake Total 2320 / 2320 1500 / 1500
Balance 2320 / 2320 1500 / 1500
Intake:
Oral fluids 120 / 120
IV fluids (Total) 1900 / 1900 1100 / 1100
IV piggybacks 300 / 300 400 / 400
Other:
Number of approximated MODERATE 2 1
amounts of urine
Lab Results
11/08/24 06:41
11/08/24 06:41
Physical Exam
-
General: No Acute Distress and AOx3
Abdomen: Soft, Non Distended and Non Tender
Skin: Warm and Dry
[2024-11-08 15:07] VITALS: BP 132/80
== END 2024-11-08 16:24 | disposition home or self-care (01) | DRG 392 ==
LOC: 4 WEST ACU 20:14
PROVIDERS: Nurse Practitioner Family; Student in an Organized Health Care Education/Training Program; ADMITTING PHYSICIAN Internal Medicine; ATTENDING PHYSICIAN Internal Medicine; EMERGENCY PHYSICIAN Emergency Medicine; FAMILY PHYSICIAN Family Medicine Geriatric Medicine; OTHER PHYSICIAN Surgery
DX: K57.20 Diverticulitis of large intestine with perforation and abscess without bleeding (principal); I10 Essential (primary) hypertension; E03.9 Hypothyroidism, unspecified; E11.9 Type 2 diabetes mellitus without complications; Z79.84 Long term (current) use of oral hypoglycemic drugs; Z90.49 Acquired absence of other specified parts of digestive tract; Z88.6 Allergy status to analgesic agent; Z88.1 Allergy status to other antibiotic agents; Z88.5 Allergy status to narcotic agent; Z88.0 Allergy status to penicillin; Z88.2 Allergy status to sulfonamides; Z79.890 Hormone replacement therapy; Z79.899 Other long term (current) drug therapy; Z90.710 Acquired absence of both cervix and uterus; Z90.79 Acquired absence of other genital organ(s); Z90.722 Acquired absence of ovaries, bilateral
CPT/HCPCS: 74177; 80048; 80053; 81003; 85025; 85027; 99285; Q9967

== ENCOUNTER → 2025-02-27 11:18 | Outpatient (REF) | payer MEDICARE, OTHER, SELFPAY ==
[2025-02-27 14:06] LABS: Blood Urea Nitrogen 8 mg/dl (7-17)
== END ==
LOC: REG 11:18
PROVIDERS: ATTENDING PHYSICIAN Surgery; FAMILY PHYSICIAN Family Medicine Geriatric Medicine
DX: K57.32 Diverticulitis of large intestine without perforation or abscess without bleeding (principal)
CPT/HCPCS: 36415; 82565; 84520

== ENCOUNTER → 2025-02-28 13:55 | Outpatient (REF) | payer MEDICARE, OTHER, SELFPAY | LOC: RAD 13:55 | PROVIDERS: ATTENDING PHYSICIAN Surgery; FAMILY PHYSICIAN Family Medicine Geriatric Medicine | DX: K57.32 Diverticulitis of large intestine without perforation or abscess without bleeding (principal) | CPT/HCPCS: 74177; Q9967 ==